=== PATIENT | female | born 1985 | race Two or more races ===

== ENCOUNTER 2022-01-03 14:23 | Outpatient (CLI) | payer OTHER | END 2022-01-03 15:52 | disposition home or self-care (01) | LOC: PRENATAL 14:23 | PROVIDERS: ATTEND Obstetrics & Gynecology Maternal & Fetal Medicine | DX: O35.0XX0 Maternal care for (suspected) central nervous system malformation in fetus, not applicable or unspecified (principal); O35.3XX0 Maternal care for (suspected) damage to fetus from viral disease in mother, not applicable or unspecified; O09.529 Supervision of elderly multigravida, unspecified trimester ==

== ENCOUNTER → 2022-01-21 | Emergency (ER) | payer OTHER ==
[~2022-01-21] VITALS: Ht 165.1 cm; Wt 74.4 kg
== END | disposition home or self-care (01) ==
LOC: ER 23:50
DX: O21.8 Other vomiting complicating pregnancy (principal); Z3A.25 25 weeks gestation of pregnancy; O23.42 Unspecified infection of urinary tract in pregnancy, second trimester; N39.0 Urinary tract infection, site not specified

== ENCOUNTER 2022-01-22 00:55 | Outpatient (CLI) | payer OTHER | END 2022-01-22 22:14 | disposition home or self-care (01) | LOC: OBS/DEL 00:55 | PROVIDERS: ATTEND Obstetrics & Gynecology | DX: O21.8 Other vomiting complicating pregnancy (principal); O26.892 Other specified pregnancy related conditions, second trimester; Z3A.25 25 weeks gestation of pregnancy; Z20.822 Contact with and (suspected) exposure to COVID-19 ==

== ENCOUNTER 2022-02-13 00:20 | Outpatient (CLI) | payer OTHER ==
[2022-02-13] MEDS ORDERED: GAVISCON LIQUI355 ML (00:35)
[2022-02-13] MEDS ORDERED: PRENATAL TABLE1 EAC1 (00:35)
== END 2022-02-13 17:06 | disposition home or self-care (01) ==
LOC: OBS/DEL 00:20
PROVIDERS: ATTEND Obstetrics & Gynecology
DX: O21.8 Other vomiting complicating pregnancy (principal); Z3A.28 28 weeks gestation of pregnancy; R10.816 Epigastric abdominal tenderness; Z20.822 Contact with and (suspected) exposure to COVID-19

== ENCOUNTER 2022-04-23 06:38 | Inpatient (IN) | payer OTHER ==
[~2022-04-23] VITALS: Ht 165.1 cm; Wt 74.4 kg
[~2022-04-23 06:38] MED LIST: GAVISCON LIQUI355 ML; PRENATAL TABLE1 EAC1
== END 2022-04-25 14:22 | disposition home or self-care (01) | DRG 807 ==
LOC: LDR 06:38 → OB/GYN 06:38
PROVIDERS: ADMIT Obstetrics & Gynecology; ATTEND Obstetrics & Gynecology
PROC: 10E0XZZ Delivery of Products of Conception, External Approach (ICD-10-PCS; principal; 2022-04-23)
PROC: 0KQM0ZZ Repair Perineum Muscle, Open Approach (ICD-10-PCS; 2022-04-23)
PROC: 4A1HXCZ Monitoring of Products of Conception, Cardiac Rate, External Approach (ICD-10-PCS; 2022-04-23)
DX: O70.1 Second degree perineal laceration during delivery (principal); Z37.0 Single live birth; Z3A.39 39 weeks gestation of pregnancy; Z20.822 Contact with and (suspected) exposure to COVID-19